=== PATIENT | female | born 1965 | race Caucasian/White ===

== ENCOUNTER 2017-06-15 10:04 | Emergency (ER) | payer OTHER ==
[~2017-06-15] VITALS: Ht 165.1 cm; Wt 59.0 kg
[2017-06-15] MEDS ORDERED: PANTOPRAZOLE 40 MG/10 ML VIAL IV STA (10:13)
[2017-06-15] MEDS ORDERED: SODIUM CHLORIDE 0.9% 1,000 ML IVB ONE (10:13)
[2017-06-15] MEDS ORDERED: HYDROmorphone HCL 2 MG/ML VL IV ONE (10:15)
[2017-06-15] MEDS ORDERED: PROCHLORPERAZINE EDISYLATE 5 MG/ML 2ML VIAL IV ONE (10:15)
[2017-06-15 10:42] LABS: Basophils # (auto) 0 uL; CONDITION Y; Eosinophils # (auto) 0 uL; Hematocrit 47.1 % (36.0-46.0); Hemoglobin 16.1 g/dL (12.2-16.2); Lymphocytes # (auto) 2.1 uL; Lymphocytes % (auto) 10.3 % (10.0-50.0); Mean Corpuscular Hemoglobin 30.1 pg (28.0-32.0); Mean Corpuscular Hgb Conc. 34.2 g/dL (32.0-36.0); Mean Platelet Volume 9.2 fL (7.4-10.4); Monocytes # (auto) 0.4 uL; Monocytes % (auto) 1.9 % (0.0-12.0); Neutrophils # (auto) 17.9 uL; Neutrophils % (auto) 87.8 % (37.0-80.0); Platelet Count (auto) 347 10^3/uL (140-450); Red Cell Distribution Width 13.6 % (11.6-16.0); White Blood Cell 20.4 10^3/uL (4.4-10.8)
[2017-06-15 11:02] LABS: Albumin 4.1 g/dL (3.4-5.0); Bilirubin, Total 0.6 mg/dL (0.2-1.0); Calcium 9.7 mg/dL (8.5-10.1); Potassium 3.4 mmol/L (3.5-5.1); Total Protein 8.2 g/dL (6.4-8.2)
[2017-06-15 11:52] VITALS: BP 125/53
== END 2017-06-15 11:51 | disposition home or self-care (01) ==
LOC: ER 10:05
DX: K29.70 Gastritis, unspecified, without bleeding (principal); Z86.73 Personal history of transient ischemic attack (TIA), and cerebral infarction without residual deficits; F12.10 Cannabis abuse, uncomplicated; Z88.6 Allergy status to analgesic agent
CPT/HCPCS: 36415; 76705; 80053; 82150; 83690; 83735; 85025; 94761; 96361; 96374; 96375; 99285; C9113; J0780; J1170; J7030